=== PATIENT | male | born 1985 | race Caucasian/White ===

== ENCOUNTER 2016-08-15 14:40 | Emergency (ER) | payer SELFPAY ==
[~2016-08-15] VITALS: Ht 180.3 cm; Wt 81.6 kg
--- NOTE | 2016-08-15 14:50 | NUR ---
Presents self to ed due to epigastric pain x 3 days, 10/12, worst today. Patient denied n/v/d. No hematuria nor dysuria. Skin is warm to touch and non diaphoretic. Afebrile. Vss.
--- NOTE | 2016-08-15 14:54 | NUR ---
Md Perry at bedside for evaluation
[2016-08-15] MEDS ORDERED: LIDOCAINE VISCOUS 2% UD 15 ML UDC ONE (14:57)
[2016-08-15] MEDS ORDERED: IV NS 0.9% 1,000 ML ONE (14:57)
[2016-08-15] MEDS ORDERED: IV SET PRIMARY PUMP SET 1 EA INFUS.SET MC ONE (14:57)
[2016-08-15] MEDS ORDERED: MAG HYDROX/AL HYDROX/SIMETH 30 ML UDC ONE (14:57)
[2016-08-15] MEDS: LIDOCAINE VISCOUS 2% UD 15 ML UDC MM ONE (15:03)
[2016-08-15] MEDS: MAG HYDROX/AL HYDROX/SIMETH 30 ML UDC PO ONE (15:03)
--- NOTE | 2016-08-15 15:05 | NUR ---
Iv accessed to lac 18,. blood sample sent to lab
[2016-08-15] MEDS: IV NS 0.9% 1,000 ML BAG IV ONE (15:06)
--- NOTE | 2016-08-15 15:07 | NUR ---
MEdicated patient as ordered
[2016-08-15 15:12] LABS: BASOPHILS % (AUTO) 0.2 % (0.0-2.0); EOSINOPHILS # (AUTO) 0.2 /CMM (0.0-0.7); EOSINOPHILS % (AUTO) 1.6 % (0.0-6.0); HEMATOCRIT 45 % (39-51); HEMOGLOBIN 14.9 g/dL (13.5-17.5); LYMPHOCYTES # (AUTO) 1.5 /CMM (0.8-4.8); MEAN CORPUSCULAR HEMOGLOBIN 29 PG (26.0-33.0); MEAN CORPUSCULAR HGB CONC 33 g/dl (31.0-36.0); MEAN CORPUSCULAR VOLUME 89 fL (80-96); MONOCYTES # (AUTO) 0.8 /CMM (0.1-1.30); MONOCYTES % (AUTO) 6.7 % (2.0-12.0); NEUTROPHILS # (AUTO) 8.9 /CMM (1.8-8.9); NEUTROPHILS % (AUTO) 78.5 % (43.0-81.0); PLATELET COUNT (AUTO) 220 /CMM (150-450); RDW COEFFICIENT OF VARIATION 12.3 (11.5-15.0); RED BLOOD CELL COUNT(AUTO) 5.08 MIL/uL (4.5-6.0); WHITE BLOOD COUNT (AUTO) 11.4 K/uL (4.3-11.0)
[2016-08-15 15:19] LABS: POTASSIUM 3.4 mmol/L (3.5-5.1)
[2016-08-15 15:25] LABS: ALBUMIN 3.7 g/dL (3.4-5.0); BILIRUBIN,DIRECT 0.1 mg/dL (0.0-0.2); BILIRUBIN,TOTAL 0.4 mg/dL (0.2-1.0); TOTAL PROTEIN, SERUM 7.2 g/dL (6.4-8.2)
--- NOTE | 2016-08-15 17:05 | NUR ---
IV removed. Catheter intact and site benign. Pressure and 4x4 applied to site. No bleeding noted.Patient discharged to home in stable condition. Written and verbal after care instructions given. Patient verbalizes understanding of instruction.
[2016-08-15 17:09] VITALS: BP 120/75
== END 2016-08-15 17:11 | disposition home or self-care (01) ==
LOC: ER 14:41
DX: R10.13 Epigastric pain (principal); F17.200 Nicotine dependence, unspecified, uncomplicated
CPT/HCPCS: 36415; 80048; 80076; 83690; 85025; 96360; 99284; 99406; A4606; J7030; Z7610